=== PATIENT | female | born 1960 | race Two or more races ===

== ENCOUNTER 2022-02-05 09:21 | Emergency (ER) | payer OTHER ==
[~2022-02-05] VITALS: Ht 152.4 cm; Wt 81.8 kg
[2022-02-05] MEDS ORDERED: MORPHINE SULFATE 4 MG/ML SYR/VIAL IV ONE ×3 (09:45→18:30)
[2022-02-05] MEDS ORDERED: ONDANSETRON HCL 4 MG/2 ML VIAL IV ONE ×2 (09:45→13:45)
[2022-02-05] MEDS ORDERED: SODIUM CHLORIDE 0.9% 500 ML IVB ONE (09:45)
[2022-02-05 10:25] LABS: Basophils # (auto) 0.1 10 ^3/uL (0-0.2)
[2022-02-05 10:27] LABS: Basophils % (auto) 0.5 % (0.0-2.0); Eosinophils # (auto) 0.1 10 ^3/uL (0-0.8); Eosinophils % (auto) 0.9 % (0.0-7.0); Hematocrit 35.9 % (36.0-46.0); Hemoglobin 11.3 g/dL (12.2-16.2); Lymphocytes # (auto) 2.1 10 ^3/uL (0.4-5.4); Lymphocytes % (auto) 12.6 % (10.0-50.0); Mean Corpuscular Hemoglobin 26.4 pg (28.0-32.0); Mean Corpuscular Hgb Conc. 31.4 g/dL (32.0-36.0); Mean Corpuscular Volume 84.2 fL (80.0-100.0); Monocytes # (auto) 0.8 10 ^3/uL (0-1.3); Monocytes % (auto) 4.9 % (0.0-12.0); Neutrophils # (auto) 13.2 10 ^3/uL (1.6-8.6); Neutrophils % (auto) 81.1 % (37.0-80.0); Red Blood Cells 4.26 10^6/uL (4.0-5.20); Red Cell Distribution Width 14.6 % (11.8-14.3); White Blood Cell 16.3 10^3/uL (4.4-10.8)
[2022-02-05 10:46] LABS: Potassium 3.2 mmol/L (3.5-5.1)
[2022-02-05 10:58] LABS: Albumin 3.3 g/dL (3.4-5.0); Bilirubin, Total 1.7 mg/dL (0.2-1.0); Calcium 9.2 mg/dL (8.5-10.1); Total Protein 7.3 g/dL (6.4-8.2)
[2022-02-05 10:59] LABS: INR 0.92 (0.9-1.15); Partial Thromboplastin Time 21.3 sec (24.6-33.4)
[2022-02-05] MEDS ORDERED: IOHEXOL 300 MG/ML 100ML BOTTLE IJ ONE (12:11)
[2022-02-05] MEDS ORDERED: IOHEXOL 350 MG/ML 100ML IJ ONE (12:21)
[2022-02-05] MEDS ORDERED: PIPERACILLIN-TAZOB 3.375GM 100 ML IV ONE (15:15)
[2022-02-05] MEDS ORDERED: METOCLOPRAMIDE HCL 5MG/ml INJ 2ml VIAL IV ONE (18:30)
[2022-02-06 00:58] LABS: Urine Bacteria FEW /hpf (None Seen); Urine Blood Negative /uL (Negative); Urine Mucus FEW (None Seen); Urine WBC 14 /hpf (0 - 5)
[2022-02-06] MEDS ORDERED: MORPHINE SULFATE INJ 2 MG/ml SYRG IV ONE (01:00)
[2022-02-06 01:03] VITALS: BP 145/56
[2022-02-06 01:25] LABS: Urine Specific Gravity > 1.035 (1.001-1.035)
== END 2022-02-05 15:13 | disposition home or self-care (01) ==
LOC: ER 09:21 → EDBD 09:21 → ER 15:13
DX: K85.90 Acute pancreatitis without necrosis or infection, unspecified (principal); E11.9 Type 2 diabetes mellitus without complications; I10 Essential (primary) hypertension; Z98.51 Tubal ligation status
CPT/HCPCS: 36415; 36600; 71045; 71260; 74177; 80053; 81001; 82150; 82805; 83690; 84484; 85025; 85610; 85730; 87426; 93005; 96361; 96365; 96366; 96375; 96376; 99285; J2270; J2405; J2543; J2765; Q9967